=== PATIENT | male | born 1985 | race African-American/Black ===

== ENCOUNTER 2021-09-05 21:08 | Emergency (ER) | payer SELFPAY, OTHER | END 2021-09-05 23:20 | disposition home or self-care (01) | LOC: CSHERS 21:08 | DX: R07.89 Other chest pain (principal); F17.210 Nicotine dependence, cigarettes, uncomplicated; V43.62XA Car passenger injured in collision with other type car in traffic accident, initial encounter | CPT/HCPCS: 71046; 93005; 93010 ==

== ENCOUNTER 2025-08-20 21:36 | Emergency (ER) | payer SELFPAY | END 2025-08-20 23:14 | disposition home or self-care (01) | LOC: CSHERS 21:36 | DX: S62.625A Displaced fracture of middle phalanx of left ring finger, initial encounter for closed fracture (principal); F17.210 Nicotine dependence, cigarettes, uncomplicated; W23.0XXA Caught, crushed, jammed, or pinched between moving objects, initial encounter | CPT/HCPCS: 26720 ==